=== PATIENT | female | born 1990 | race Caucasian/White ===

== ENCOUNTER → 2017-12-27 | Outpatient (CLI) | payer OTHER ==
--- NOTE | 2017-12-27 23:26 | RADIOLOGY IMAGING REPORT ---
FACILITY: [facility] [place] PATIENT NAME: Scarlett Peralta : 1990 MR: [id number] V: [id number] EXAM DATE: ORDERING PHYSICIAN: KELLEE BHATTI TECHNOLOGIST: Location: [facility] Patient: Scarlett Peralta : 1990 Visit/Account:[id number] Date of Sevice: 12/27/2017 Ultrasound of the thyroid: Indication: Thyromegaly Technique: Routine imaging protocol. Comparison: None. Right lobe: Enlarged, measuring 5.4 x 1.9 x 1.7 cm. The parenchyma is heterogeneous in echogenicity. In the midportion, there is a 4 mm hypoechoic lesion, may represent a colloid cyst or solid nodule. N ear the inferior pole, there is a 4 mm hypoechoic lesion, probably representing a colloid cyst. No do minant nodule or calcification is identified. Isthmus: Measures 2 mm and appears unremarkable. Left lobe: Mildly enlarged, measuring 4.6 x 1.5 x 1.5 cm. The parenchyma is heterogeneous in echogeni city. Near the upper pole, there is a 4 mm hypoechoic lesion, which may represent a colloid cyst or s olid nodule. Near the junction with the isthmus, there is a 7 mm hypoechoic nodule lesion, which may also represent a colloid cyst or solid nodule. No dominant nodule or calcification is identified. IMPRESSION: Bilateral enlargement, with heterogeneous parenchymal echogenicity. No dominant nodule is identified. A few tiny hypoechoic lesions are present. REFERENCE: 2015 [place] [employer] Management Guidelines for Adult Patients with Thyroid Nodules and D ifferentiated Thyroid Cancer: The [place] [employer] Guidelines Task Force on Thyroid Nodul es and Differentiated Thyroid Cancer. SONOGRAPHIC PATTERNS: * Benign: Purely cystic nodules (no solid component); estimated risk of malignancy <1 percent; no bi opsy recommended. * Very Low Suspicion: Spongiform or partially cystic nodules without any of the sonographic features described in low, intermediate, or high suspicion patterns; estimated risk of malignancy <3 percent; consider FNA at > 2 cm (Observation without FNA is also a reasonable option). * Low Suspicion: Isoechoic or hyperechoic solid nodule, or partially cystic nodule with eccentric so lid areas, without microcalcification, irregular margin or ETE (extra-thyroidal extension), or taller than wide shape; estimated risk of malignancy 5-10 percent; recommend FNA at >1.5 cm. * Intermediate Suspicion: Hypoechoic solid nodule with smooth margins without microcalcifications, E TE (extra-thyroidal extension), or taller than wide shape; estimated risk of malignancy 10-20 percent ; recommend FNA at > 1 cm. * High Suspicion: Solid hypoechoic nodule or solid hypoechoic component of a partially cystic nodule with one or more of the following features: irregular margins (infiltrative, microlobulated), microc alcifications, taller than wide shape, rim calcifications with small extrusive soft tissue component, evidence of ETE (extra-thyroidal extension); estimated risk of malignancy >70-90 percent; recommend FNA at > 1 cm. NOTES: * Although a sonographically suspicious subcentimeter thyroid nodule without evidence of extrathyroi jimi extension or sonographically suspicious lymph nodes may be observed with close sonographic follow -up rather than pursuing immediate FNA, patient age and preference may modify decision-making. * A > 50% interval increase in nodule volume and/or development of new suspicious sonographic featur es are felt to be a valid reasons for potential re-aspiration of a nodule previously shown to have be nign FNA cytology. Report Dictated By: Mick Jama MD at 12/27/2017 10:21 PM Report E-Signed By: Mick Jama MD at 12/27/2017 11:21 PM WSN:[id number]
== END ==
LOC: US 15:33
PROVIDERS: ATTEND Nurse Practitioner Family
DX: E01.0 Iodine-deficiency related diffuse (endemic) goiter (principal)
CPT/HCPCS: 76536

== ENCOUNTER → 2018-12-14 | Outpatient (CLI) | payer OTHER ==
[~2018-12-14] MED LIST: ALB6.7R INH; [UNRECOGNIZED DRUG - CODE] IY
--- NOTE | 2018-12-14 14:59 | RADIOLOGY IMAGING REPORT ---
FACILITY: [facility] PATIENT NAME: Scarlett Peralta : 1990 MR: [id number] V: [id number] EXAM DATE: ORDERING PHYSICIAN: SHANTA BARKSDALE TECHNOLOGIST: Location: [facility] [place] Patient: Scarlett Peralta : 1990 Visit/Account:[id number] Date of Sevice: 12/14/2018 Examination: MR brain without contrast History: Four head and right-sided facial numbness Comparison: Technique: Multiplane MR imaging was performed through the brain without contrast. Findings: Diffusion: None Ventricles: Normal Midline shift: None Extraaxial fluid: None. Midline craniocervical structures: Mild reactive nasopharyngeal lymphoid hypertrophy. Parenchyma: Normal Vascular flow voids: Normal Orbits and paranasal sinuses: Normal Other: No significant additional finding. Impression: Normal non-contrast brain MR. Report Dictated By: Jhonny Guillermo MD at 12/14/2018 2:51 PM Report E-Signed By: Jhonny Guillermo MD at 12/14/2018 2:54 PM WSN:[id number]
== END ==
LOC: MRI 00:37
PROVIDERS: ATTEND Psychiatry & Neurology Neurology
DX: G44.219 Episodic tension-type headache, not intractable (principal)
CPT/HCPCS: 70551

== ENCOUNTER → 2019-03-01 | Outpatient (CLI) | payer OTHER ==
--- NOTE | 2019-03-01 15:38 | RADIOLOGY IMAGING REPORT ---
FACILITY: [facility] - [place] PATIENT NAME: Scarlett Peralta : 1990 MR: [id number] V: [id number] EXAM DATE: ORDERING PHYSICIAN: KELLEE BHATTI TECHNOLOGIST: Location: [facility] [place] Patient: Scarlett Peralta : 1990 Visit/Account:[id number] Date of Sevice: 03/01/2019 THYROID HISTORY: Thyroid enlargement, thyroid nodules COMPARISON: December 27, 2017 FINDINGS: SIZE: Right lobe: 5.3 x 1.4 x 2 cm Left lobe: 4.6 x 1.7 x 1.9 cm Isthmus: 3 mm PARENCHYMA: Diffusely heterogeneous bilaterally NODULES: Right lobe: * There is a relatively well-circumscribed ovoid hypoechoic nodule in the mid to superior pole the r ight lobe measuring 8 mm in diameter Left lobe: * In the medial mid left lobe there is an 8 mm well-circumscribed ovoid hypoechoic nodule. In the l ateral aspect of the mid left lobe there is a 4 mm well-circumscribed hypoechoic nodule Isthmus: * None discrete. VASCULARITY: Within normal limits. ADDITIONAL FINDINGS: None. IMPRESSION: Diffusely heterogeneous thyroid bilaterally. There are subcentimeter thyroid nodules as described ab ove REFERENCE: 2015 [place] [employer] Management Guidelines for Adult Patients with Thyroid Nodules and D ifferentiated Thyroid Cancer: The [place] [employer] Guidelines Task Force on Thyroid Nodul es and Differentiated Thyroid Cancer. SONOGRAPHIC PATTERNS: * Benign: Purely cystic nodules (no solid component); estimated risk of malignancy <1 percent; no bi opsy recommended. * Very Low Suspicion: Spongiform or partially cystic nodules without any of the sonographic features described in low, intermediate, or high suspicion patterns; estimated risk of malignancy <3 percent; consider FNA at > 2 cm (Observation without FNA is also a reasonable option). * Low Suspicion: Isoechoic or hyperechoic solid nodule, or partially cystic nodule with eccentric so lid areas, without microcalcification, irregular margin or ETE (extra-thyroidal extension), or taller than wide shape; estimated risk of malignancy 5-10 percent; recommend FNA at >1.5 cm. * Intermediate Suspicion: Hypoechoic solid nodule with smooth margins without microcalcifications, E TE (extra-thyroidal extension), or taller than wide shape; estimated risk of malignancy 10-20 percent ; recommend FNA at > 1 cm. * High Suspicion: Solid hypoechoic nodule or solid hypoechoic component of a partially cystic nodule with one or more of the following features: irregular margins (infiltrative, microlobulated), microc alcifications, taller than wide shape, rim calcifications with small extrusive soft tissue component, evidence of ETE (extra-thyroidal extension); estimated risk of malignancy >70-90 percent; recommend FNA at > 1 cm. NOTES: * Although a sonographically suspicious subcentimeter thyroid nodule without evidence of extrathyroi jimi extension or sonographically suspicious lymph nodes may be observed with close sonographic follow -up rather than pursuing immediate FNA, patient age and preference may modify decision-making. A > 50% interval increase in nodule volume and/or development of new suspicious sonographic features are felt to be a valid reasons for potential re-aspiration of a nodule previously shown to have benig n FNA cytology. Report Dictated By: Josie Hodge MD at 03/01/2019 3:32 PM Report E-Signed By: Josie Hodge MD at 03/01/2019 3:35 PM WSN:[email or web address]
== END ==
LOC: US 06:48
PROVIDERS: ATTEND Nurse Practitioner Family
DX: E04.2 Nontoxic multinodular goiter (principal)
CPT/HCPCS: 76536